=== PATIENT | male | born 1985 | race African-American/Black ===

== ENCOUNTER 2017-09-07 06:20 | Day surgery (SDC) | payer OTHER ==
[~2017-09-07] VITALS: Ht 175.3 cm; Wt 106.5 kg
[~2017-09-07 06:20] MED LIST: ALEVE220 MG PO; ANAPROX DS550 M1 PO; ATARAX,VISTARIL50 MG PO; MOBIC15 MG PO; NAPROXEN500 MG PO; NO HOME MEDS; PERCOCET 5/31 TABLET PO; PREDNISONE50 MG PO; ULTRAM50 MG PO
[2017-09-07 07:04] VITALS: BP 144/81
[2017-09-07 07:42] LABS: CHLORIDE 104 MEQ/L (99-109); GFR ESTIMATE (CALCULATED) > 59 mL/min/ (58.99-99999); GLUCOSE 87 mg/dL (70-99); HDL CHOLESTEROL 45 MG/DL (Desirable>=40); LDL CHOLESTEROL 90 mg/dL (Desirable<100); NON-HDL CHOLESTEROL 105 mg/dL (Desirable<160); POTASSIUM 3.9 MEQ/L (3.7-5.4); SODIUM 141 MEQ/L (136-147); TOTAL CHOLESTEROL 150 mg/dL (Desirable<200); TRIGLYCERIDES 76 MG/DL (Normal: <150); UREA NITROGEN (BUN) 16 mg/dL (9-23)
[2017-09-07] MEDS ORDERED: HYDROCODON-ACE1 EAC7 PO (09:31)
[2017-09-07 12:05] VITALS: BP 124/74
[2017-09-07 13:15] VITALS: BP 139/71
== END 2017-09-07 13:35 | disposition home or self-care (01) ==
LOC: SDC 06:20
PROVIDERS: Surgery
PROC: 0HBV0ZX Excision of Bilateral Breast, Open Approach, Diagnostic (ICD-10-PCS; principal; 2017-09-07)
DX: N63.0 Unspecified lump in unspecified breast (principal); N62 Hypertrophy of breast; F41.9 Anxiety disorder, unspecified; M54.12 Radiculopathy, cervical region; Z87.891 Personal history of nicotine dependence; Z88.0 Allergy status to penicillin; Z80.41 Family history of malignant neoplasm of ovary
CPT/HCPCS: 80048; 80061; 85025; 88305; 93005; J0330; J1100; J1170; J2250; J2405; J3010; S0020

== ENCOUNTER 2017-11-21 19:24 | Emergency (ER) | payer OTHER ==
[~2017-11-21] VITALS: Ht 177.8 cm; Wt 115.0 kg
[~2017-11-21 19:24] MED LIST changes: +HYDROCODON-ACE1 EAC7 PO
[2017-11-21 21:16] VITALS: BP 138/72
== END 2017-11-21 21:17 | disposition home or self-care (01) ==
LOC: EME 19:24
DX: S06.0X0A Concussion without loss of consciousness, initial encounter (principal); V49.50XA Passenger injured in collision with unspecified motor vehicles in traffic accident, initial encounter; Y92.410 Unspecified street and highway as the place of occurrence of the external cause; Z88.0 Allergy status to penicillin
CPT/HCPCS: 99281; 99283

== ENCOUNTER 2017-12-04 19:34 | Emergency (ER) | payer OTHER ==
[~2017-12-04] VITALS: Ht 175.3 cm; Wt 114.4 kg
[2017-12-04] MEDS ORDERED: CLEOCIN150 MG PO (21:19)
[2017-12-04 21:35] VITALS: BP 128/85
== END 2017-12-04 21:35 | disposition home or self-care (01) ==
LOC: EME 19:34
DX: S91.311A Laceration without foreign body, right foot, initial encounter (principal); W25.XXXA Contact with sharp glass, initial encounter; Z88.0 Allergy status to penicillin; Z91.018 Allergy to other foods
CPT/HCPCS: 73630; 99281; 99284